=== PATIENT | female | born 1935 | race Caucasian/White ===

== ENCOUNTER 2017-02-08 19:42 | Emergency (ER) | payer MEDICARE ==
--- NOTE | 2017-02-08 21:39 | RAD ---
INDICATION: Right hip pain TECHNIQUE: An AP view of the pelvis was obtained. FINDINGS: There is a horizontally oriented cortical lucency overlying the lesser trochanter level of the right femur. The bones are in normal alignment. Degenerative changes of the bilateral hips include joint space narrowing and sclerotic change of the articulating surfaces. There is exuberant marginal osteophyte formation on the left. IMPRESSION: Possible nondisplaced right subtrochanteric fracture.
[2017-02-08 22:32] LABS: Urine Bacteria Absent (Absent); Urine Bilirubin Negative (Negative); Urine Glucose Negative (Negative); Urine Nitrite Negative (Negative)
--- NOTE | 2017-02-08 22:58 | RAD ---
CLINICAL HISTORY: Right hip pain COMPARISON: CT abdomen pelvis dated February 22, 2016 TECHNIQUE: Multiple contiguous axial CT scans were obtained of the abdomen and pelvis without intravenous contrast enhancement. Coronal and sagittal multiplanar reformations are submitted for review. FINDINGS: There are left greater than right degenerative changes of the hips including narrowing of the joint space, sclerotic change of the articulating services, subchondral lucencies and exuberant marginal osteophyte formation. Degenerative changes are more severe at the left hip than the right. Additional degenerative changes include vacuum disc phenomenon at the bilateral sacroiliac joints and the L4/L5 intervertebral disc space. There is no acute fracture or dislocation identified. Postsurgical changes include surgical graft material at the midline abdominal wall and surgical material at the base of the cecum. The visualized portions of the small and large bowel are normal. There is coarse atherosclerotic calcification of the visualized arteries. IMPRESSION: Degenerative changes as described above without acute fracture or dislocation identified. IMPRESSION: No acute abnormalities of the pelvis.
[2017-02-08] MEDS ORDERED: Lidocaine PATCH 5%* 1 PATCH TRANSDERM ONE (23:45)
[2017-02-09 00:03] VITALS: BP 110/61
[2017-02-09] MEDS ORDERED: Lidocaine Patch REMOVE* 1 NOTE MISC PATCH OFF SCH (12:00)
--- NOTE | 2017-04-25 12:56 | ED ---
Lower Extremity - HPI Summary HPI Summary: Pt here w/ accidental fall from bed - as a result, has Rt hip pain as she landed here. Pain is constant. Worse w/ touch - sore to move. No knee, ankle, foot pain and no back pain. Denies numbness, tingling, weakness in LE's and no change in bowel/bladder habits. No c/o UE's injury. She also denies hitting her head, jarring her head or LOC. No ZENDEJAS, change in vision, nausea/vomiting, confusion, lability of mood. She does take coumadin and denies recent bruising/ bleeding. - History of Current Complaint Chief Complaint: EDHipPelvisInjury Stated Complaint: RIGHT HIP PAIN Time Seen by Provider: 02/08/17 21:14 Hx Obtained From: Patient Pain Intensity: 0 Pain Scale Used: 0-10 Numeric - Allergies/Home Medications Allergies/Adverse Reactions: Allergies Allergy/AdvReac Type Severity Reaction Status Date / Time No Known Allergies Allergy Verified 02/22/16 15:25 PMH/Surg Hx/FS Hx/Imm Hx Previously Healthy: Yes Endocrine/Hematology History: Reports: Hx Anticoagulant Therapy, Hx Diabetes - TYPE 2, Hx Thyroid Disease Denies: Hx Unexplained Bleeding Cardiovascular History: Reports: Hx Hypertension - CONTROL WITH MED, Other Cardiovascular Problems/Disorders - CHOLESTEROL CONTROL WITH MEDS; h/o cardiac cath GI History: Reports: Hx Hiatal Hernia - HX OF Sensory History: Reports: Hx Contacts or Glasses - READING GLASSES, Hx Hearing Aid - DOES NOT USE Opthamlomology History: Reports: Hx Contacts or Glasses - READING GLASSES Neurological History: Reports: Hx Dementia, Hx Headaches - OCCASIONAL Psychiatric History: Reports: Hx Anxiety, Hx Depression - Cancer History Hx Chemotherapy: No Hx Radiation Therapy: No - Surgical History Surgery Procedure, Year, and Place: HYSTERECTOMY, [facility] [place]. 2002 COLONOSCOPY, [facility] [place]. 2010 CARDIAC CATHERIZATION, [facility] [place] Hx Anesthesia Reactions: No Infectious Disease History: Denies: Traveled Outside the [place] in Last 30 Days - Social History Occupation: Retired Alcohol Use: None Hx Substance Use: No Substance Use Type: Reports: None Hx Tobacco Use: No Smoking Status (MU): Never Smoked Tobacco Have You Smoked in the Last Year: No Review of Systems Negative: Fatigue Eyes: Negative Negative: Photophobia, Blurred Vision, Diplopia Negative: Epistaxis, Dental Pain Negative: Chest Pain Negative: Shortness Of Breath Negative: Abdominal Pain, Vomiting, Nausea Positive: no symptoms reported. Negative: incontinence Musculoskeletal: Other Skin: Negative Neurological: Negative Psychological: Normal All Other Systems Reviewed And Are Negative: Yes Physical Exam Triage Information Reviewed: Yes Vital Signs On Initial Exam: Initial Vitals Temp Pulse Resp BP Pulse Ox 98.7 F 78 20 138/78 98 02/08/17 20:47 02/08/17 20:47 02/08/17 20:47 02/08/17 20:47 02/08/17 20:47 Vital Signs Reviewed: Yes Appearance: Positive: Well-Appearing, No Pain Distress, Well-Nourished Skin: Positive: Warm, Dry - no skin breakdown Head/Face: Positive: Normal Head/Face Inspection - NTTP, no gross deformity Eyes: Positive: Normal, EOMI, VIKKI, Conjunctiva Clear ENT: Positive: Hearing grossly normal, TMs normal - no hemotymanum, no urbano sign, no racoon sign Dental: Negative: Dental Fracture @ Neck: Positive: Supple, Nontender Respiratory/Lung Sounds: Positive: Breath Sounds Present. Negative: Subcutaneous Emphysema, Tracheal Deviation Cardiovascular: Positive: Normal, RRR, Pulses are Symmetrical in both Upper and Lower Extremities Abdomen Description: Positive: Nontender, Soft Bowel Sounds: Positive: Present Musculoskeletal: Positive: Strength/ROM Intact - FROM knee, ankle, foot, toes, Pain @ - Rt lateral hip w/ TTP - pt reports this is sore- some pain w/ movement - does NOT have externally rotated leg here, Other - spinous pp NTTP - no gross deformity, no hematoma Neurological: Positive: Normal, Sensory/Motor Intact, Alert, Oriented to Person Place, Time, CN Intact II-III Psychiatric: Positive: Normal - Ezio Coma Scale Coma Scale Total: 15 Diagnostics - Vital Signs Vital Signs Temp Pulse Resp BP Pulse Ox 02/09/17 00:02 89 15 110/61 02/08/17 22:49 98.6 F 76 18 134/78 98 02/08/17 20:47 98.7 F 78 20 138/78 98 - Laboratory Lab Results: Lab Results 02/08/17 Range/Units 22:10 Urine Color Yellow Urine Appearance Clear Urine pH 6.0 (5-9) Ur Specific [place] 1.015 (1.010-1.030) Urine Protein Negative (Negative) Urine Ketones Negative (Negative) Urine Blood Negative (Negative) Urine Nitrate Negative (Negative) Urine Bilirubin Negative (Negative) Urine Urobilinogen Negative (Negative) Ur Leukocyte Esterase Trace H (Negative) Urine WBC (Auto) Trace(0-5/hpf) (Absent) Urine RBC (Auto) Absent (Absent) Ur Squamous Epith Cells Present H (Absent) Urine Bacteria Absent (Absent) Urine Glucose Negative (Negative) Lab Statement: Any lab studies that have been ordered have been reviewed, and results considered in the medical decision making process. Lower Extremity Course/Dx - Course Course Of Treatment: Pt here w/ gentle fall from bed w/ Rt hip pain. Her XR initially reveal concern for Rt sided fx however CT scan cleared pt of such suspicions. 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 A lidoderm patch was placed over affected area of pain for relief as she canot take NSAID's (on coumadin). She is able to ambulate well. A head CT was not preformed as pt declined, stating she did not hit her head, had no neurological deficits and did not want this done. Pt advised to monitor for s/sx of worsening head injury and return to ED if sx present. Pt agrees w/ plan and will f/u w/ PCP as directed. - Diagnoses Provider Diagnoses: Contusion of right hip, Fall from bed Discharge - Discharge Plan Condition: Stable Disposition: HOME Patient Education Materials: Fall Prevention for Older Adults (ED), Contusion in Adults (ED), Hip Pain (ED) Referrals: Patrice Cornell DO [Primary Care Provider] - Additional Instructions: DO NOT TAKE NSAID's (ibuprofen, advil, aleve, naproxen, aspirin) Follow-up with PCP in 1-2 weeks if pain persists. *If you develop headache, confusion, vomiting, weakness, visual change, return to ED
== END 2017-02-09 00:02 | disposition home or self-care (01) ==
LOC: ED 19:42
DX: S70.01XA Contusion of right hip, initial encounter (principal); M25.551 Pain in right hip; W06.XXXA Fall from bed, initial encounter; Y93.9 Activity, unspecified; Y92.9 Unspecified place or not applicable
CPT/HCPCS: 72170; 72192; 81003; 81015; 87086; 99282